=== PATIENT | female | born 1960 | race African-American/Black ===

== ENCOUNTER 2023-11-13 10:53 | Emergency (ER) | payer SELFPAY ==
[~2023-11-13] VITALS: Ht 170.2 cm; Wt 66.0 kg
[2023-11-13 11:05] VITALS: O2SAT 99
[2023-11-13] MEDS ORDERED: HYDR25TA MT (11:21)
[2023-11-13] MEDS ORDERED: LOSA25TA26 MT (11:21)
[2023-11-13] MEDS ORDERED: ASPI-1497 MT (11:21)
[2023-11-13 11:34] VITALS: BP 143/85; PULSE 78; RESP 18; TEMP 98.7
== END 2023-11-13 11:37 | disposition home or self-care (01) ==
LOC: ER 11:00
DX: I10 Essential (primary) hypertension (principal); Z76.0 Encounter for issue of repeat prescription; Z98.890 Other specified postprocedural states; Z88.8 Allergy status to other drugs, medicaments and biological substances
CPT/HCPCS: 99283